=== PATIENT | female | born 1995 | race Caucasian/White ===

== ENCOUNTER 2018-10-05 05:39 | Inpatient (IN) | payer BC ==
[2018-10-05] MEDS ORDERED: METHYLERGONOVINE 0.2 MG/ML 1 ML AMP IM PRN (06:14)
[2018-10-05] MEDS ORDERED: OXYTOCIN 10 UNIT/ML 1 ML VIAL IM PRN (06:14)
[2018-10-05] MEDS ORDERED: CARBOPROST TROMETHAMINE 250 MCG/ML 1 ML AMP IM PRN (06:14)
[2018-10-05] MEDS ORDERED: LIDOCAINE 0.5% (PF) 5 MG/ML (50 ML SDV) SQ PRN (06:14)
[2018-10-05] MEDS ORDERED: TERBUTALINE 1 MG/ML VIAL SQ PRN (06:14)
[2018-10-05] MEDS ORDERED: OXYTOCIN 30 UNITS/500 ML NS 30 UNIT in SALINE 1 500ML.BAG IV SCH (06:15)
[2018-10-05 06:23] VITALS: BMI 28.6
[2018-10-05] MEDS: LACTATED RINGERS 1,000 ML IV SCH ×3 (06:31→14:22)
[2018-10-05 06:37] LABS: Basophils % (A) 0 %; Eosinophils # (A) 0.1 k/uL (0-0.7); Eosinophils % (A) 1 %; HCT 35.8 % (34.0-46.0); HGB 11.9 gm/dL (11.4-16.0); Lymphocytes # (A) 1.6 k/uL (1.0-4.8); Lymphocytes % (A) 17 %; MCH 28.7 pg (25.0-35.0); MCHC 33.2 g/dL (31.0-37.0); MCV 86.4 fL (80.0-100.0); Mean Platelet Volume 7.9; Monocytes # (A) 0.5 k/uL (0-1.0); Monocytes % (A) 5 %; Neutrophils # (A) 7.1 k/uL (1.3-7.7); Neutrophils % (A) 75 %; Platelet Count 215 k/uL (150-450); RBC 4.15 m/uL (3.80-5.40); RDW 15.6 % (11.5-15.5); WBC 9.4 k/uL (3.8-10.6)
--- NOTE | 2018-10-05 07:24 | P.HPOB ---
History of Present Illness H&P Date: 10/05/18 Chief Complaint: Spontaneous rupture of membranes This is a 23 year old 3 para 1011 woman with an estimated due date of 10/10/2018 who presents with spontaneous rupture of membranes at approximately 5 AM. She had increasing contractions throughout the night prior to this. Upon presentation to labor and delivery triage rupture of membranes is confirmed and fluid appears meconium-stained. She is 1 cm dilated and the cervix is thick and posterior. Her has been unremarkable. She has a history in prior and early of marijuana use nothing recent. She is otherwise healthy. Laboratory data reveals blood type A+, antibody screen negative, rubella nonimmune, VDRL nonreactive, hepatitis B surface antigen negative, HIV negative, gonorrhea and clinic cultures negative, glucose tolerance testing within normal limits, group B strep cultures negative. Obstetrical history: Post dates normal spontaneous vaginal delivery of 8 lbs. 5 oz. female infant in 2017. Review of Systems All systems: negative Past Medical History Past Medical History: No Reported History Additional Past Medical History / Comment(s): 2017 History of Any Multi-Drug Resistant Organisms: None Reported Past Surgical History: No Surgical Hx Reported Past Anesthesia/Blood Transfusion Reactions: No Reported Reaction Past Psychological History: No Psychological Hx Reported Smoking Status: Never smoker Past Alcohol Use History: None Reported Past Drug Use History: Marijuana - Past Family History Father Family Medical History: No Reported History Medications and Allergies Home Medications Medication Instructions Recorded Confirmed Type Pnv No.95/Ferrous Fum/Folic AC 1 each PO DAILY 10/05/18 10/05/18 History [ Multivitamin Tablet] Allergies Allergy/AdvReac Type Severity Reaction Status Date / Time No Known Allergies Allergy Verified 10/05/18 05:46 Exam Vital Signs Temp Pulse Resp BP 10/05/18 06:18 98.1 F 84 16 120/63 Intake and Output 10/04/18 10/05/18 10/05/18 22:59 06:59 14:59 Other: Weight 87.997 kg This is an uncomfortable appearing, visibly gravid female. Targeted physical exam is performed. Meconium-stained fluid is noted. Cervix is 3 cm, 50% effaced and vertex is in -2 station. heart tones are category 2 and she is miquel every 2-5 minutes. Results Result Diagrams: 10/05/18 06:20 Abnormal Lab Results - Last 24 Hours (Table) 10/05/18 Range/Units 06:20 RDW 15.6 H (11.5-15.5) % Assessment and Plan (1) 39 weeks gestation of Current Visit: Yes Status: Acute Code(s): Z3A.39 - 39 WEEKS GESTATION OF SNOMED Code(s): 73080939 (2) Spontaneous rupture of membranes Current Visit: Yes Status: Acute Code(s): VNJ3499 - SNOMED Code(s): 082291749 (3) Meconium in amniotic fluid Current Visit: Yes Status: Acute Code(s): P96.83 - MECONIUM STAINING SNOMED Code(s): 7500375 (4) Rubella non-immune status, antepartum Current Visit: Yes Status: Acute Code(s): O99.89 - OTH DISEASES AND CONDITIONS COMPL PREG/CHLDBRTH; Z28.3 - UNDERIMMUNIZATION STATUS SNOMED Code(s): 218072142 Plan: 23-year-old 3 para 1011 woman admitted with spontaneous rupture of membranes at 39-2/7 weeks' gestation, meconium-stained fluid. Pitocin augmentation of labor initiated due to irregular contraction pattern remote from delivery. She is group B strep negative and Rh+. Rubella nonimmune. She may have an epidural anesthetic upon request in active labor. Anticipate normal spontaneous vaginal delivery. Category 2 heart tones.
[2018-10-05] MEDS ORDERED: fentaNYL (PF) 50 MCG/ML 5 ML AMP ONE (07:51)
[2018-10-05] MEDS ORDERED: SODIUM CHLORIDE 0.9% 100 ML BAG ONE (07:51)
[2018-10-05] MEDS ORDERED: ROPIVACAINE 5MG/ML 20ML VIAL ONE (07:51)
[2018-10-05] MEDS ORDERED: ACETAMINOPHEN TAB 325 MG TAB PO PRN (10:32)
[2018-10-05] MEDS ORDERED: diphenhydrAMINE 50 MG/ML 1 ML VIAL IVP PRN ×2 (10:32)
[2018-10-05] MEDS ORDERED: diphenhydrAMINE 25 MG CAP PO PRN (10:32)
[2018-10-05] MEDS ORDERED: ZOLPIDEM 5 MG TAB PO PRN (10:32)
[2018-10-05] MEDS ORDERED: WITCH HAZEL 1 EACH MED..PAD TOPICAL PRN (10:32)
[2018-10-05] MEDS ORDERED: MEASLES-MUMPS-RUBELLA VACC/PF 12,500 UNIT/0.5 ML VIAL SQ ONE (10:32)
[2018-10-05] MEDS ORDERED: HYDROCORTISONE 2.5% RECTAL CREAM 30 GM TUBE RECTAL PRN (10:32)
[2018-10-05] MEDS ORDERED: LANOLIN CREAM 5 GM TUBE TOPICAL PRN (10:32)
[2018-10-05] MEDS ORDERED: SIMETHICONE 80 MG CHEWABLE PO PRN (10:32)
[2018-10-05] MEDS ORDERED: diphenhydrAMINE 50 MG CAP PO PRN (10:32)
[2018-10-05] MEDS ORDERED: BENZOCAINE/MENTHOL SPRAY 1 GM/SPRAY AEROSOL TOPICAL PRN (10:32)
--- NOTE | 2018-10-05 10:32 | P.PROBDLV ---
Vaginal Delivery Note - . Vaginal Delivery Note: Findings: Female in the vertex left occiput anterior position with Apgars of 9 at 1 minute and 9 at 5 minutes weighing 6 lbs. 12 oz., 3050 g. Intact perineum. Bilateral labial abrasions. Thick meconium-stained fluid. EBL approximately 150 mL's. Delivery summary: This is a 23-year-old 3 para 1011 woman who presented with spontaneous rupture of membranes at 04 50. Fluid was noted to be meconium stained when she presented to labor and delivery triage. Rupture of membranes was confirmed and the patient was irregularly miquel and 1 cm dilated. She was admitted and Pitocin augmentation was initiated. She progressed to 3 cm dilated at which time she received an epidural anesthetic. She rested comfortably and made rapid progression to complete cervical dilation. She had strong urge to push. In the second stage of labor she had excellent maternal effort with on variable heart rate decelerations to the 80-90 bpm with return to baseline. The tombstone carver was present at delivery for meconium stained fluid. The head crowned and she was repositioned, prepped and draped in the dorsal modified Fanta position. With additional maternal effort the head delivered in the left occiput anterior position. The nose and mouth were bulb suctioned on the perineum. The rest the infant was delivered onto the field and the infant was placed on the maternal abdomen. The cord was clamped and cut. The was taken immediately to the warmer for further evaluation. Apgars were 9 at 1 minute and 9 at 5 minutes. An intact, three-vessel cord placenta with meconium-stained membranes was expressed after approximately 6 minute third stage of labor. There was some dark clot delivered at the time of the placenta possibly consistent with small abruption. Following delivery of the placenta the uterus was assessed was massaged and noted to be firm and at the level of the umbilicus. The perineum, vagina and cervix were all inspected and no lacerations were noted. There were bilateral labial abrasions that were not actively bleeding. All counts were correct and both mother and infant were doing well post delivery in the room.
[2018-10-05] MEDS ORDERED: OXYTOCIN 20 UNITS/1000 ML NS 1,000 ML IV SCH (10:45)
[2018-10-05] MEDS: IBUPROFEN 600 MG TAB PO PRN (18:37)
[2018-10-05] MEDS: SENNOSIDES-DOCUSATE SODIUM 1 EACH TAB PO SCH (21:44)
[2018-10-06 06:23] LABS: Basophils % (A) 0 %; Eosinophils # (A) 0.1 k/uL (0-0.7); Eosinophils % (A) 1 %; HCT 34.4 % (34.0-46.0); HGB 11.1 gm/dL (11.4-16.0); Lymphocytes # (A) 1.7 k/uL (1.0-4.8); Lymphocytes % (A) 17 %; MCH 28.3 pg (25.0-35.0); MCHC 32.4 g/dL (31.0-37.0); MCV 87.4 fL (80.0-100.0); Mean Platelet Volume 7.9; Monocytes # (A) 0.4 k/uL (0-1.0); Monocytes % (A) 4 %; Neutrophils # (A) 7.4 k/uL (1.3-7.7); Neutrophils % (A) 76 %; Platelet Count 200 k/uL (150-450); RBC 3.93 m/uL (3.80-5.40); RDW 15.6 % (11.5-15.5); WBC 9.7 k/uL (3.8-10.6)
[2018-10-06] MEDS: SENNOSIDES-DOCUSATE SODIUM 1 EACH TAB PO SCH (08:00)
[2018-10-06] MEDS: IBUPROFEN 600 MG TAB PO PRN (08:28)
[2018-10-06 08:49] VITALS: BP 103/57; PULSE 64; RESP 18; TEMP 97.8
--- NOTE | 2018-10-06 08:58 | P.DS ---
Providers Date of admission: 10/05/18 05:58 Expected date of discharge: 10/06/18 Attending physician: Yolis Chacko Primary care physician: Stated None - Discharge Diagnosis(es) (1) 39 weeks gestation of Current Visit: Yes Status: Acute (2) Spontaneous rupture of membranes Current Visit: Yes Status: Acute (3) Meconium in amniotic fluid Current Visit: Yes Status: Acute (4) Rubella non-immune status, antepartum Current Visit: Yes Status: Acute (5) Normal spontaneous vaginal delivery Current Visit: Yes Status: Acute Hospital Course: This is a 23-year-old 3 now para 2012 woman who presented at 39 weeks gestation with spontaneous rupture of membranes, meconium-stained fluid. She was in early active labor. Following admission she underwent a Pitocin augmentation of labor. She received an epidural anesthetic. She had rapid progression to complete cervical dilation. Should an unremarkable second stage of labor to deliver a liveborn female over an intact perineum with Apgars of 9 at 1 minute and 9 at 5 minutes weighing 6 lbs. 2 oz. The field training agent was in attendance for delivery secondary to thick meconium-stained fluid. Please see the delivery summary for details. On the patient's course was entirely unremarkable. By the morning of day #1 she was ambulating and voiding without difficulty, her lochia was minimal, she was breast-feeding successfully and her vital signs were stable. Her postoperative labs were within normal limits. She was therefore discharged home with routine instructions for care and follow-up. Procedures: Normal spontaneous vaginal delivery Patient Condition at Discharge: Good Plan - Discharge Summary New Discharge Prescriptions: New Acetaminophen Tab [Tylenol] 650 mg PO Q4HR PRN tab PRN Reason: Mild Pain Or Fever >= 100.5 No Action Pnv No.95/Ferrous Fum/Folic AC [ Multivitamin Tablet] 1 each PO DAILY Discharge Medication List Pnv No.95/Ferrous Fum/Folic AC [ Multivitamin Tablet] 1 each PO DAILY 10/05/18 [History] Acetaminophen Tab [Tylenol] 650 mg PO Q4HR PRN tab 10/06/18 [Rx] Follow up Appointment(s)/Referral(s): Yolis Chacko MD [STAFF PHYSICIAN] - 6 Weeks Activity/Diet/Wound Care/Special Instructions: Follow-up in the office in 6 weeks . Call with any concerning signs or symptoms including heavy vaginal bleeding, severe abdominal pain, fever greater than 101, swelling or redness of the lower extremities, foul vaginal discharge, or signs of depression. Nothing in the vagina for 6 weeks after delivery, specifically no intercourse. Discharge Disposition: HOME SELF-CARE
== END 2018-10-06 11:40 | disposition home or self-care (01) | DRG 807 ==
LOC: FBPOP 05:39 → 4FBP 05:58
PROVIDERS: ADMIT Obstetrics & Gynecology; ATTEND Obstetrics & Gynecology
PROC: 10E0XZZ Delivery of Products of Conception, External Approach (ICD-10-PCS; principal; 2018-10-05)
PROC: 00HU33Z Insertion of Infusion Device into Spinal Canal, Percutaneous Approach (ICD-10-PCS; 2018-10-05)
PROC: 3E0R3BZ Introduction of Anesthetic Agent into Spinal Canal, Percutaneous Approach (ICD-10-PCS; 2018-10-05)
DX: O77.0 Labor and delivery complicated by meconium in amniotic fluid (principal); Z37.0 Single live birth; O76 Abnormality in fetal heart rate and rhythm complicating labor and delivery; Z3A.39 39 weeks gestation of pregnancy; Z28.3 Underimmunization status
CPT/HCPCS: 85025; 86850; 86900; 86901; 88307; 99213

== ENCOUNTER 2020-08-21 06:32 | Inpatient (IN) | payer OTHER ==
[2020-08-21] MEDS ORDERED: TERBUTALINE 1 MG/ML VIAL SQ PRN (08:51)
[2020-08-21] MEDS ORDERED: OXYTOCIN 10 UNIT/ML 1 ML VIAL IM PRN (08:51)
[2020-08-21] MEDS ORDERED: LIDOCAINE 0.5% (PF) 5 MG/ML (50 ML SDV) SQ PRN (08:51)
[2020-08-21] MEDS ORDERED: METHYLERGONOVINE 0.2 MG/ML 1 ML AMP IM PRN (08:51)
[2020-08-21] MEDS ORDERED: CARBOPROST TROMETHAMINE 250 MCG/ML 1 ML AMP IM PRN (08:51)
[2020-08-21] MEDS ORDERED: OXYTOCIN 30 UNITS/500 ML NS 30 UNIT in SALINE 1 500ML.BAG IV SCH ×2 (09:00→11:15)
[2020-08-21 09:16] LABS: Basophils % (A) 0 %; Eosinophils # (A) 0.1 k/uL (0-0.7); Eosinophils % (A) 1 %; HCT 34.2 % (34.0-46.0); HGB 10.8 gm/dL (11.4-16.0); Hypochromasia Slight; Lymphocytes # (A) 1.4 k/uL (1.0-4.8); Lymphocytes % (A) 11 %; MCH 25.6 pg (25.0-35.0); MCHC 31.6 g/dL (31.0-37.0); MCV 81.2 fL (80.0-100.0); Mean Platelet Volume 8.3; Monocytes # (A) 0.6 k/uL (0-1.0); Monocytes % (A) 5 %; Neutrophils # (A) 10.6 k/uL (1.3-7.7); Neutrophils % (A) 82 %; Platelet Count 227 k/uL (150-450); Poikilocytosis Slight; RBC 4.21 m/uL (3.80-5.40); RDW 15.4 % (11.5-15.5); WBC 12.8 k/uL (3.8-10.6)
[2020-08-21] MEDS ORDERED: ROPIVACAINE 5MG/ML 20ML VIAL ONE (09:25)
[2020-08-21] MEDS ORDERED: fentaNYL (PF) 50 MCG/ML 5 ML AMP ONE (09:25)
[2020-08-21] MEDS ORDERED: SODIUM CHLORIDE 0.9% 100 ML BAG ONE (09:25)
--- NOTE | 2020-08-21 10:06 | P.HPOB ---
History of Present Illness H&P Date: 08/21/20 Chief Complaint: IUP @ 39 6/7 weeks, labor This is a 25 yo at 39 6/7 weeks, EDC of 08/22/2020. Patient presents with complaints of regular painful contractions. she denies LOF, VB she has been receiving routine care with Dr. Chacko that has been uncomplicated. she denies any concerns with her pregnancies or deliveries. She notes her largest baby to have been 8 pounds at delivery. She did have an ultrasound at 20 weeks' revealing a LGA baby greater than 97th percentile. Repeat ultrasound was performed on 07/26 was noted to be 7 lbs. 8 oz. 93rd percentile. On blood work she has a blood type of A+, rubella status immune, B surface antigen negative, HIV negative, RPR nonreactive, group beta strep is negative. Review of Systems Constitutional: Denies chills, Denies fatigue, Denies fever Ears, nose, mouth and throat: Denies headache Cardiovascular: Reports leg edema Respiratory: Denies dyspnea Gastrointestinal: Denies constipation, Denies diarrhea, Denies nausea, Denies vomiting Genitourinary: Reports Past Medical History Past Medical History: No Reported History Additional Past Medical History / Comment(s): 2016 History of Any Multi-Drug Resistant Organisms: None Reported Past Surgical History: No Surgical Hx Reported Past Anesthesia/Blood Transfusion Reactions: No Reported Reaction Smoking Status: Current every day smoker - Past Family History Father Family Medical History: No Reported History Medications and Allergies Home Medications Medication Instructions Recorded Confirmed Type Pnv No.95/Ferrous Fum/Folic AC 1 each PO DAILY 10/05/18 08/21/20 History [ Multivitamin Tablet] Acetaminophen Tab [Tylenol] 650 mg PO Q4HR PRN tab 10/06/18 08/21/20 Rx Allergies Allergy/AdvReac Type Severity Reaction Status Date / Time No Known Allergies Allergy Verified 08/21/20 10:02 Exam Osteopathic Statement: *. No significant issues noted on an osteopathic structural exam other than those noted in the History and Physical/Consult. 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 Category 1 heart tones are appreciated and she is miquel every 2 minutes. Results Result Diagrams: 08/21/20 09:00 Abnormal Lab Results - Last 24 Hours (Table) 08/21/20 Range/Units 09:00 WBC 12.8 H (3.8-10.6) k/uL Hgb 10.8 L (11.4-16.0) gm/dL Neutrophils # 10.6 H (1.3-7.7) k/uL Assessment and Plan (1) Term Current Visit: Yes Status: Acute Code(s): Z34.90 - ENCNTR FOR SUPRVSN OF NORMAL , UNSP, UNSP TRIMESTER SNOMED Code(s): 20857895 (2) Active labor Current Visit: Yes Status: Acute Code(s): VPA1281 - SNOMED Code(s): 535269891 (3) Meconium in amniotic fluid Current Visit: No Status: Acute Code(s): P96.83 - MECONIUM STAINING SNOMED Code(s): 3237993 Plan: Patient is admitted to labor and delivery with anticipation of normal spontaneous vaginal delivery. Meconium-stained fluid is discussed, she states she had this with her last delivery. Questions are answered.
[2020-08-21] MEDS ORDERED: HYDROCORTISONE 2.5% RECTAL CREAM 30 GM TUBE RECTAL PRN (11:08)
[2020-08-21] MEDS ORDERED: LANOLIN CREAM 5 GM TUBE TOPICAL PRN (11:08)
[2020-08-21] MEDS ORDERED: BENZOCAINE/MENTHOL SPRAY 1 GM/SPRAY AEROSOL TOPICAL PRN (11:08)
[2020-08-21] MEDS ORDERED: ZOLPIDEM 5 MG TAB PO PRN (11:08)
[2020-08-21] MEDS ORDERED: diphenhydrAMINE 50 MG CAP PO PRN (11:08)
[2020-08-21] MEDS ORDERED: SIMETHICONE 80 MG CHEWABLE PO PRN (11:08)
[2020-08-21] MEDS ORDERED: diphenhydrAMINE 25 MG CAP PO PRN (11:08)
[2020-08-21] MEDS ORDERED: ACETAMINOPHEN TAB 325 MG TAB PO PRN (11:08)
[2020-08-21] MEDS ORDERED: diphenhydrAMINE 50 MG/ML 1 ML VIAL IVP PRN ×2 (11:08)
--- NOTE | 2020-08-21 11:13 | P.PROBDLV ---
Vaginal Delivery Note - . Vaginal Delivery Note: This is a 25-year-old 012 that presented to labor and delivery at 39-6/7 weeks with complaints of regular painful contractions. Patient was admitted to labor and delivery and she soon requested epidural placement. Epidural was placed without difficulty by the anesthesia department. Patient quickly progressed to complete and had a normal spontaneous vaginal delivery of a viable male at 1059, weight of 8 lbs. 11 oz. and Apgars of 9 and 9 at one and 5 minutes respectively. Infant did have a spontaneous cry at , Quiors was available given thin meconium-stained fluid. After two-minute delay the umbilical cord was doubly clamped and cut and the infant was handed to awaiting RN for evaluation. No vaginal lacerations were appreciated. Placenta was delivered spontaneously intact with a three-vessel cord being noted. Uterus is noted to be firm and below the umbilicus. Estimated blood loss 100 mL. Patient and infant tolerated delivery well and are resting comfortably.
[2020-08-21] MEDS: LACTATED RINGERS 1,000 ML IV SCH ×2 (11:30→20:12)
[2020-08-21] MEDS: IBUPROFEN 600 MG TAB PO SCH ×2 (14:44→20:13)
[2020-08-21] MEDS: SENNOSIDES-DOCUSATE SODIUM 1 EACH TAB PO SCH (20:13)
[2020-08-22] MEDS: IBUPROFEN 600 MG TAB PO SCH ×2 (04:11→08:29)
[2020-08-22 06:23] LABS: Basophils % (A) 0 %; Eosinophils # (A) 0.2 k/uL (0-0.7); Eosinophils % (A) 1 %; HCT 30.1 % (34.0-46.0); HGB 9.6 gm/dL (11.4-16.0); Hypochromasia Slight; Lymphocytes # (A) 1.9 k/uL (1.0-4.8); Lymphocytes % (A) 16 %; MCH 25.8 pg (25.0-35.0); MCHC 31.9 g/dL (31.0-37.0); MCV 80.9 fL (80.0-100.0); Mean Platelet Volume 8.4; Monocytes # (A) 0.5 k/uL (0-1.0); Monocytes % (A) 4 %; Neutrophils % (A) 77 %; Platelet Count 225 k/uL (150-450); RBC 3.72 m/uL (3.80-5.40); RDW 15.3 % (11.5-15.5); WBC 11.7 k/uL (3.8-10.6)
[2020-08-22 08:50] VITALS: BP 125/68; PULSE 61; RESP 18; TEMP 98.2
[2020-08-22] MEDS ORDERED: PRENATAL VIT-IRON-FOLIC ACID 1 EACH CAP PO SCH (09:00)
--- NOTE | 2020-08-22 09:35 | P.DS ---
Providers Date of admission: 08/21/20 08:40 Expected date of discharge: 08/22/20 Attending physician: Yolis Chacko Primary care physician: Stated None - Discharge Diagnosis(es) (1) Term Current Visit: Yes Status: Acute (2) Active labor Current Visit: Yes Status: Acute (3) Meconium in amniotic fluid Current Visit: No Status: Acute (4) Normal spontaneous vaginal delivery Current Visit: No Status: Acute Hospital Course: This is a 25yo that presented to labor and delivery with complaints of regular painful contractions. Patient denied loss of fluid, VB. Patient had been receiving routine care to been essentially uncomplicated with Dr. Chacko. Patient has known large for gestational age that was greater than the 97th percentile at 20 weeks. Patient was deemed to be in active labor therefore she was admitted to labor and delivery. Patient soon requested epidural after admission, epidural was placed without difficulty by the anesthesia department. Patient progressed to complete began pushing and had a normal spontaneous vaginal delivery of a viable male at 1059, weight of 8 lbs. 11 oz. and Apgars of 9 and 9 at one and 5 minutes respect weight. Meconium-stained fluid was noted upon rupture of membranes therefore sock mender was available at delivery. No vaginal laceration was appreciated after delivery of the infant. Patient's course has been uneventful. On this day #1 she is ambulating and voiding without difficulty. She states her pain is well-contro lled. She is breast-feeding without difficulty. She does desire discharge home at 24 hours. Patient Condition at Discharge: Good Plan - Discharge Summary New Discharge Prescriptions: No Action Pnv No.95/Ferrous Fum/Folic AC [ Multivitamin Tablet] 1 each PO DAILY Acetaminophen Tab [Tylenol] 650 mg PO Q4HR PRN tab PRN Reason: Mild Pain Or Fever >= 100.5 Discharge Medication List Pnv No.95/Ferrous Fum/Folic AC [ Multivitamin Tablet] 1 each PO DAILY 10/05/18 [History] Acetaminophen Tab [Tylenol] 650 mg PO Q4HR PRN tab 10/06/18 [Rx] Follow up Appointment(s)/Referral(s): Yolis Chacko MD [STAFF PHYSICIAN] - 1 Week Patient Instructions/Handouts: Vaginal Delivery (DC), Vaginal Delivery (GEN) Discharge Disposition: HOME SELF-CARE
[2020-08-22] MEDS: SENNOSIDES-DOCUSATE SODIUM 1 EACH TAB PO SCH (11:30)
== END 2020-08-22 11:50 | disposition home or self-care (01) | DRG 807 ==
LOC: FBPOP 06:32 → 4FBP 08:40
PROVIDERS: ADMIT Obstetrics & Gynecology Obstetrics; ATTEND Obstetrics & Gynecology
PROC: 10E0XZZ Delivery of Products of Conception, External Approach (ICD-10-PCS; principal; 2020-08-21)
DX: O36.63X0 Maternal care for excessive fetal growth, third trimester, not applicable or unspecified (principal); Z37.0 Single live birth; O77.0 Labor and delivery complicated by meconium in amniotic fluid; O99.334 Smoking (tobacco) complicating childbirth; F17.200 Nicotine dependence, unspecified, uncomplicated; Z3A.39 39 weeks gestation of pregnancy
CPT/HCPCS: 59025; 85025; 86850; 86900; 86901; 88307; 99213

== ENCOUNTER → 2020-11-16 | Outpatient (CLI) | payer OTHER ==
[2020-11-16 10:28] LABS: Basophils % (A) 1 %; Eosinophils # (A) 0.1 k/uL (0-0.7); Eosinophils % (A) 2 %; HCT 41.6 % (34.0-46.0); HGB 13.6 gm/dL (11.4-16.0); Lymphocytes # (A) 1.5 k/uL (1.0-4.8); Lymphocytes % (A) 35 %; MCH 28.7 pg (25.0-35.0); MCHC 32.7 g/dL (31.0-37.0); MCV 87.8 fL (80.0-100.0); Mean Platelet Volume 8.1; Monocytes # (A) 0.3 k/uL (0-1.0); Monocytes % (A) 7 %; Neutrophils # (A) 2.3 k/uL (1.3-7.7); Neutrophils % (A) 53 %; Platelet Count 226 k/uL (150-450); RBC 4.73 m/uL (3.80-5.40); RDW 15.9 % (11.5-15.5); WBC 4.4 k/uL (3.8-10.6)
== END | disposition home or self-care (01) ==
LOC: LABPAT 09:54
PROVIDERS: ATTEND Obstetrics & Gynecology
DX: Z01.812 Encounter for preprocedural laboratory examination (principal)
CPT/HCPCS: 36415; 85025

== ENCOUNTER 2020-11-22 06:15 | Day surgery (SDC) | payer OTHER ==
[2020-11-16 14:08] VITALS: BMI 24.3
[~2020-11-22 06:15] MED LIST: DEXAMETHASONE SOD PHOSPHATE 4 MG/ML 1 ML VIAL IV ONE; LACTATED RINGERS 1,000 ML IV SCH; MIDAZOLAM 2 MG/2 ML VIAL IV PRN; ONDANSETRON 4 MG/2 ML VIAL IVP ONE; Pre Op ABX Message 1 EACH MISC MISCELLANE ONE; SCOPOLAMINE 1.5MG/72HR PATCH TRANSDERM ONE
[2020-11-22] MEDS ORDERED: LIDOCAINE 1% INJ 10MG/ML (20 ML MDV) ONE (07:30)
[2020-11-22] MEDS ORDERED: PROPOFOL 10 MG/ML 20 ML VIAL IV ONE (07:30)
[2020-11-22] MEDS ORDERED: fentaNYL (PF) 50 MCG/ML 2 ML AMP ONE (07:30)
[2020-11-22] MEDS ORDERED: NEOSTIGMINE 1 MG/ML 10 ML VIAL ONE (07:30)
[2020-11-22] MEDS ORDERED: GLYCOPYRROLATE 0.2 MG/ML 2 ML VIAL ONE (07:30)
[2020-11-22] MEDS ORDERED: SUCCINYLCHOLINE CHLORIDE 100 MG/5 ML SYR IV ONE (07:30)
[2020-11-22] MEDS ORDERED: KETOROLAC 15 MG/ML 1 ML VIAL ONE (07:30)
[2020-11-22] MEDS ORDERED: ROCURONIUM 10 MG/ML (5 ML VIAL) IV ONE (07:30)
[2020-11-22] MEDS ORDERED: MIDAZOLAM 2 MG/2 ML VIAL ONE (07:30)
[2020-11-22] MEDS ORDERED: BUPIVACAINE (PF) 0.5% 30 ML VIAL SQ ONE ×2 (07:58→08:02)
[2020-11-22 08:23] VITALS: TEMP 97.6
[2020-11-22] MEDS ORDERED: ONDANSETRON 4 MG/2 ML VIAL IVP PRN (08:31)
[2020-11-22] MEDS ORDERED: Acetaminophen-Codeine 300-30mg TAB PO PRN ×2 (08:31)
[2020-11-22] MEDS ORDERED: KETOROLAC 15 MG/ML 1 ML VIAL IVP PRN (08:31)
[2020-11-22] MEDS ORDERED: SIMETHICONE 80 MG CHEWABLE PO PRN (08:31)
[2020-11-22] MEDS ORDERED: METOCLOPRAMIDE 5 MG/ML 2 ML VIAL IVP PRN (08:31)
[2020-11-22] MEDS ORDERED: IBUPROFEN 600 MG TAB PO PRN (08:31)
[2020-11-22] MEDS ORDERED: diphenhydrAMINE 50 MG/ML 1 ML VIAL IVP PRN (08:31)
[2020-11-22] MEDS: HYDROmorphone 0.5 MG/0.5 ML SYRINGE IVP PRN ×3 (08:35→09:20)
--- NOTE | 2020-11-22 08:38 | P.OP ---
Date of Procedure: 11/22/20 Preoperative Diagnosis: #1. Multiparity, status post normal vaginal delivery #2. Undesired fertility Postoperative Diagnosis: Same Procedure(s) Performed: #1. Laparoscopic bilateral tubal occlusion with Filshie clips Anesthesia: PAMELLA Surgeon: Pacheco Lutz Estimated Blood Loss (ml): 5 IV fluids (ml): 500 Urine output (ml): 5 Pathology: none sent Condition: stable Disposition: PACU Operative Findings: Preoperative pelvic examination demonstrated a roughly 4-5 week anteverted mobile normal shaped uterus with normal adnexa bilaterally. Intraoperatively, the uterus was noted to be still somewhat flaccid secondary to recent status but was otherwise entirely normal to inspection as were the tubes and ovaries. There was no evidence of any pathology in the pelvis. The small bowel, large bowel, appendix, liver, gallbladder, and diaphragm were entirely normal to inspection as well. A Filshie clip was firmly placed across the isthmic portion of each fallopian tube. Description of Procedure: The patient was prepped and draped in usual fashion after general endotracheal anesthesia was administered by the anesthesiologist. A speculum was placed and the anterior lip of the cervix grasped with a single-tooth tenaculum allowing placement of an acorn cannula for manipulation. The bladder had been previously drained approximate 5 mL of clear artemio urine. Attention was then turned to the abdomen where a roughly 5 mm incision was made in the transverse fold in a semilunar fashion just beneath the umbilicus lung insertion of a 5 mm optical trocar under direct visualization without difficulty. A pneumoperitoneum was then infused. A site was selected approximately 4-5 cm above the pubic symphysis in the midline where an 8 mm incision was made in the transverse plane allowing insertion of an 8 mm optical trocar under direct visualization without difficulty. The blunt probe was utilized to sweep the bowel from the pelvis and the findings are as noted above. The probe was replaced with a Filshie clip applicator which was utilized to place a Filshie clip across the isthmic portion of the right fallopian tube approximately 2-3 cm from the cornu where was firmly affixed. A similar operation was carried out on the left without difficulty. Expiration of the remainder the pelvis and abdomen demonstrated no pathology throughout and the findings were otherwise normal as noted above. The pneumoperitoneum was then evacuated through the 2 trochars and they were removed under direct visualization. Of the skin incisions were closed with interrupted subcuticular stitches of 4-0 Vicryl followed by half-inch Steri-Strips placed with Mastisol. The incisions were infused with a total of 10 mL of half percent Marcaine without epinephrine, equally divided between the 2 incisions. Estimated blood loss for the entire case was less than 5 mL. There were no complications. All sponge, instrument, and needle counts were correct. The patient tolerated the procedure well and proceeded to the recovery room in stable condition.
[2020-11-22] MEDS ORDERED: LACTATED RINGERS 1,000 ML IV SCH (08:45)
[2020-11-22] MEDS ORDERED: LACTATED RINGERS 1,000 ML IV ONE (09:28)
[2020-11-22 10:18] VITALS: RESP 20
[2020-11-22 11:06] VITALS: BP 130/70; PULSE 59
== END 2020-11-22 11:00 | disposition home or self-care (01) ==
LOC: OR 06:15
PROVIDERS: ATTEND Obstetrics & Gynecology
DX: Z30.2 Encounter for sterilization (principal)
CPT/HCPCS: 58671; 81025; J2250; J1100; J2710; J2405; J2001; J3010; J1885; J0330; J2704; J1170